=== PATIENT | female | born 1970 | race African-American/Black ===

== ENCOUNTER 2018-09-08 05:49 | Day surgery (SDC) | payer OTHER ==
[~2018-09-08] VITALS: Ht 165.1 cm; Wt 41.0 kg
[~2018-09-08 05:49] MED LIST: BISA10SU RC; DOCU250C58 PO; FERR-55 PO; MAGN400O19 PO; MULT-46 PO; NA P118E RC; PANT40TA3 PO; PARO30TA68 PO; PHEN100C PO; POLY17PO PO; TRA100 PO; TRIA60LO11 TP
[2018-09-08 06:53] VITALS: Ht 165.1 cm; Wt 41.0 kg
[2018-09-08] MEDS ORDERED: ALBU2.5V3 NEB (07:11)
[2018-09-08] MEDS ORDERED: QUET25TA33 PO (07:11)
[2018-09-08] MEDS ORDERED: LORA10TA3 PO (07:11)
[2018-09-08] MEDS ORDERED: FOLI0.4T2 PO (07:11)
[2018-09-08] MEDS ORDERED: SIME180C39 PO (07:11)
--- NOTE | 2018-09-08 07:49 | PREAC ---
Date/Time of Note Date/Time of Note DATE: 09/08/18 TIME: 07:46 Anesthesia Eval and Record Evaluation Time Pre-Procedure Interview DATE: 09/08/18 TIME: 07:46 Age 48 Sex female NPO: 8 hrs Preoperative diagnosis Vomiting, Acid Reflux Planned procedure EGD Past Medical History Past Medical History: Includes Neuro: Seizure disorder, Other (Autisim, Cerebral Palsy, ) Surgery & Anesthesia Issues No known issue Meds Anticoagulation: No Beta Rimma within 24 hr: No Reason Beta Rimma not given: Pt. not on B-Rimma Reported Medications Simethicone (Simethicone) 180 Mg Capsule, 180 MG PO PRN for DISTENSION/GAS/BLOATING, CAP 09/08/18 Folic Acid* (Folic Acid*) 0.4 Mg Tablet, 400 MG PO DAILY, TAB 09/08/18 Quetiapine Fumarate* (Quetiapine Fumarate*) 25 Mg Tablet, 25 MG PO BID, TAB 09/08/18 Albuterol Sulfate* (Albuterol Sulfate* Neb) 0.083%-3 Ml Neb, 1.25 MG NEB 8HRS for SOB, #30 VIAL 09/08/18 Loratadine* (Loratadine*) 10 Mg Tablet, 10 MG PO DAILY, #30 TAB 09/08/18 Polyethylene Glycol (Miralax) 17 Gm/Pkt Liq, 17 GM PO 1 SCOOP IN 8 OZ. PRN, #1 07/17/12 Paroxetine Hcl* (Paroxetine*) 30 Mg Tablet, 30 MG PO HS 07/17/12 Trazodone Hcl* (Trazodone Hcl*) 100 Mg Tablet, 100 MG PO HS, #2 TAB 07/17/12 Docusate Sodium* (Colace*) 250 Mg Capsule, 250 MG PO BID 07/17/12 Pantoprazole* (Protonix*) 40 Mg Tablet.dr, 40 MG PO DAILY 07/17/12 Discontinued Reported Medications Triamcinolone Acetonide (Triamcinolone Acetonide) 60 Ml Lotion, 60 ML TP PRN QD- AFFECTED AREA 07/17/12 Bisacodyl (Bisacodyl Supp) 10 Mg/Supp.rect Supp.rect, 10 MG RC PRN 07/17/12 Na Phos,M-B/Na Phos,Di-Ba* (Fleet* Enema) 118 Ml Enema, 118 ML RC PRN 1/18/13 Phenytoin* Sodium Extended (Dilantin*) 100 Mg Capsule, 100 MG PO Q8 07/17/12 Magnesium Hydroxide* (Milk Of Magnesia*) 400 Mg/5 Ml Oral.susp, 400 MG PO TID PRN, #2 TBS 07/17/12 Ferrous Sulfate* (Ferrous Sulfate*) 325 Mg Tablet, 325 MG PO AM 07/17/12 Multivit,Ther Iron,Ca,Fa & Min (Therapeutic M) 1 Tab Tablet, 1 TAB PO DAILY 07/17/12 Meds reviewed: Yes Allergies Coded Allergies: No Known Allergy (Unverified , 07/17/12) Allergies Reviewed: Yes Labs/Studies Labs Reviewed: Reviewed by anesthesiologist test: N/A Studies: ECG (n/a), CXR (n/a) Pre-procedure Exam Airway: Adequate mouth opening, Adequate thyromental dist Mallampati: Mallampati II Teeth: Normal Lung: Normal Heart: Normal ASA Physical Status ASA physical status: 3 Emergency: None Planned Anesthetic General/MAC: MAC Planned Pain Management Parenteral pain med Pre-operative Attestations Prior to commencing anesthesia and surgery, the patient was re-evaluated, there was verification of: *The patient's identity *The results of appropriate recent lab work and preoperative vital signs *The above evaluation not changing prior to induction *Anesthetic plan, risk benefits, alternative and complications discussed with patient/family; questions answered; patient/family understands, accepts and wishes to proceed. JADIEL GARCIA MD Sep 08, 2018 07:49
[2018-09-08] MEDS ORDERED: PROPOFOL 20 ML ONE (08:47)
[2018-09-08] MEDS ORDERED: PHENYLephrine (100 MCG/ML) 5ML SYG ONE (08:47)
--- NOTE | 2018-09-08 08:57 | PAC ---
Date/Time of Note Date/Time of Note DATE: 09/08/18 TIME: 08:57 Post-Anesthesia Notes Post-Anesthesia Note Last documented vital signs T:98.1 Activity: WNL Respiratory function: WNL Cardiovascular function: WNL Mental status: Baseline Pain reasonably controlled: Yes Hydration appropriate: Yes Nausea/Vomiting absent: Yes JADIEL GARCIA MD Sep 08, 2018 08:57
[2018-09-08 09:40] VITALS: BP 101/59; RESP 16
== END 2018-09-08 12:14 | disposition home or self-care (01) ==
LOC: GIL 05:49
PROVIDERS: ATTEND Internal Medicine Gastroenterology
DX: K29.30 Chronic superficial gastritis without bleeding (principal); K44.9 Diaphragmatic hernia without obstruction or gangrene; F84.0 Autistic disorder; G40.909 Epilepsy, unspecified, not intractable, without status epilepticus; G80.9 Cerebral palsy, unspecified
CPT/HCPCS: 43239; 88305; 88312; J2370; Z7610

== ENCOUNTER 2018-12-09 10:34 | Day surgery (SDC) | payer OTHER ==
[~2018-12-09] VITALS: Ht 165.1 cm; Wt 46.4 kg
[~2018-12-09 10:34] MED LIST changes: +ALBU2.5V3 NEB; -BISA10SU RC; -FERR-55 PO; +FOLI0.4T2 PO; +LORA10TA3 PO; -MAGN400O19 PO; -MULT-46 PO; -NA P118E RC; -PHEN100C PO; +QUET25TA33 PO; +SIME180C39 PO; -TRIA60LO11 TP
[2018-12-09] MEDS ORDERED: MAGN400O19 PO (11:18)
[2018-12-09] MEDS ORDERED: ACET325T40 PO (11:18)
[2018-12-09] MEDS ORDERED: BISA5TAB6 PO (11:18)
[2018-12-09] MEDS ORDERED: MINE133E23 PR (11:18)
[2018-12-09 11:22] VITALS: Ht 165.1 cm; Wt 46.4 kg
[2018-12-09 13:00] VITALS: BP 132/62; PULSE 65; RESP 18
--- NOTE | 2018-12-09 13:03 | PREAC ---
Date/Time of Note Date/Time of Note DATE: 12/09/18 TIME: 12:59 Anesthesia Eval and Record Evaluation Time Pre-Procedure Interview DATE: 12/09/18 TIME: 12:59 Age 48 Sex female NPO: 8 hrs Preoperative diagnosis Dyspepsia Planned procedure EGD Past Medical History Past Medical History: Includes Neuro: Seizure disorder, Other (Celebral palsy) Surgery & Anesthesia Issues No known issue Meds Anticoagulation: No Beta Rimma within 24 hr: No Reason Beta Rimma not given: Pt. not on B-Rimma Reported Medications Acetaminophen (MAPAP) 325 Mg Tablet, 325 MG PO Q6 PRN for DYSMENORRHEA, TAB 12/09/18 Magnesium Hydroxide* (Milk Of Magnesia*) 400 Mg/5 Ml Oral.susp, 30 ML PO DAILY PRN for CONSTIPATION, ML 12/09/18 Mineral Oil* (Fleet* Mineral Oil Enema) 133 Ml Oil, 133 ML MD NEEDED PRN for CONSTIPATION, ENEMA 12/09/18 Bisacodyl* (Bisacodyl*) 5 Mg Tablet.dr, 10 MG PO DAILY PRN for CONSTIPATION, TAB 12/09/18 Simethicone (Simethicone) 180 Mg Capsule, 180 MG PO PRN for DISTENSION/GAS/BLOATING, CAP 09/08/18 Folic Acid* (Folic Acid*) 0.4 Mg Tablet, 400 MG PO DAILY, TAB 09/08/18 Quetiapine Fumarate* (Quetiapine Fumarate*) 25 Mg Tablet, 25 MG PO BID, TAB 09/08/18 Albuterol Sulfate* (Albuterol Sulfate* Neb) 0.083%-3 Ml Neb, 1.25 MG NEB 8HRS for SOB, #30 VIAL 09/08/18 Loratadine* (Loratadine*) 10 Mg Tablet, 10 MG PO DAILY, #30 TAB 09/08/18 Polyethylene Glycol (Miralax) 17 Gm/Pkt Liq, 17 GM PO 1 SCOOP IN 8 OZ. PRN, #1 07/17/12 Paroxetine Hcl* (Paroxetine*) 30 Mg Tablet, 30 MG PO HS 07/17/12 Trazodone Hcl* (Trazodone Hcl*) 100 Mg Tablet, 100 MG PO HS, #2 TAB 07/17/12 Docusate Sodium* (Colace*) 250 Mg Capsule, 250 MG PO BID 07/17/12 Pantoprazole* (Protonix*) 40 Mg Tablet.dr, 40 MG PO DAILY 07/17/12 Meds reviewed: Yes Allergies Coded Allergies: No Known Allergy (Unverified , 07/17/12) Allergies Reviewed: Yes Labs/Studies Labs Reviewed: Reviewed by anesthesiologist test: Negative Studies: ECG Pre-procedure Exam Last vitals BP:110/56, P:88, Spo2:100%, T:98,9 Airway: Adequate mouth opening, Adequate thyromental dist Mallampati: Mallampati II Teeth: Normal Lung: Normal Heart: Normal ASA Physical Status ASA physical status: 3 Emergency: None Planned Anesthetic General/MAC: MAC Pre-operative Attestations Prior to commencing anesthesia and surgery, the patient was re-evaluated, there was verification of: *The patient's identity *The results of appropriate recent lab work and preoperative vital signs *The above evaluation not changing prior to induction *Anesthetic plan, risk benefits, alternative and complications discussed with patient/family; questions answered; patient/family understands, accepts and wishes to proceed. SONJA PLASCENCIA MD Dec 09, 2018 13:03
--- NOTE | 2018-12-09 13:14 | PAC ---
Date/Time of Note Date/Time of Note DATE: 12/09/18 TIME: 13:14 Post-Anesthesia Notes Post-Anesthesia Note Activity: WNL Respiratory function: WNL Cardiovascular function: WNL Mental status: Baseline Pain reasonably controlled: Yes Hydration appropriate: Yes Nausea/Vomiting absent: Yes Comments BP:112/54, P:76, Spo2:100%, T:98,8 SONJA PLASCENCIA MD Dec 09, 2018 13:14
[2018-12-09 13:39] VITALS: BP 108/63; PULSE 55; RESP 18
== END 2018-12-09 14:17 | disposition home or self-care (01) ==
LOC: GIL 10:34
PROVIDERS: ATTEND Internal Medicine Gastroenterology
DX: K29.50 Unspecified chronic gastritis without bleeding (principal); K44.9 Diaphragmatic hernia without obstruction or gangrene; K20.8 Other esophagitis
CPT/HCPCS: 43239; 88305; 88312; Z7610